=== PATIENT | female | born 1985 | race Caucasian/White ===

== ENCOUNTER → 2022-09-18 | Outpatient (CLI) | payer BC ==
--- NOTE | 2022-09-24 09:36 | MM ---
Reason for Exam: Screening (asymptomatic). Last mammogram was performed 2 year(s) and 7 month(s) ago. Patient History: Menarche at age 14. First Full-Term at age 28. Late child-bearing (after 30). Premenopausal. 2009, Bilateral Implants. Mother had breast cancer, age 62. Risk Values: Precious 5 year model risk: 0.9%. NCI Lifetime model risk: 17.8%. Prior Study Comparison: 02/17/2020 Bilateral Diagnostic Mammogram, [facility]. Tissue Density: The breast tissue is heterogeneously dense. This may lower the sensitivity of mammography. Findings: Analyzed By CAD. Bilateral breast implants. There is no suspicious group of microcalcifications or new suspicious mass in either breast. Overall Assessment: Negative, BI-RAD 1 Management: Screening Mammogram of both breasts in 1 year. A clinical breast exam by your physician is recommended on an annual basis and results should be correlated with mammographic findings. [facility] will attempt to contact patient to return for supplemental views and ultrasound if indicated. Electronically signed and approved by: Papo Tan DO
== END | disposition home or self-care (01) ==
LOC: RADMAMWWP 13:02
PROVIDERS: ATTEND Obstetrics & Gynecology
DX: Z12.31 Encounter for screening mammogram for malignant neoplasm of breast (principal); Z80.3 Family history of malignant neoplasm of breast
CPT/HCPCS: 77067

== ENCOUNTER → 2024-07-18 | Outpatient (CLI) | payer BC ==
--- NOTE | 2024-07-18 08:02 | MM ---
Reason for Exam: Screening (asymptomatic). Last mammogram was performed 1 year(s) and 10 month(s) ago. Patient History: Menarche at age 14. First Full-Term at age 28. Late child-bearing (after 30). Premenopausal. Patient has history of breast feeding. 2009, Bilateral Implants. Mother had breast cancer, age 62. Last menstrual period: 07/06/2024 Risk Values: Precious 5 year model risk: 1.1%. NCI Lifetime model risk: 17.6%. Prior Study Comparison: 02/17/2020 Bilateral Diagnostic Mammogram, [facility]. 09/18/2022 Bilateral MG screening mammo implant/CAD, [facility]. Tissue Density: The breasts are heterogeneously dense, which may obscure small masses. Findings: Analyzed By CAD. Bilateral retropectoral silicone implants are noted. Area of asymmetric density far posterior inferior left MLO view for which further evaluation is recommended. Additional medial anterior asymmetric density on the left cc implant displacement view. Both of these areas may represent superimposition shadow. This should be confirmed with further spot compression. Otherwise, no significant change. Overall Assessment: Incomplete: need additional imaging evaluation, BI-RAD 0 Management: Special View Mammogram of the left breast. 2 sites. [facility], , 07/18/2024 7:59 AM. Electronically signed and approved by: Kareem Garcia M.D. Radiologist
== END | disposition home or self-care (01) ==
LOC: RADMAMWWP 07:32
PROVIDERS: ATTEND Obstetrics & Gynecology
DX: Z12.31 Encounter for screening mammogram for malignant neoplasm of breast (principal); Z80.3 Family history of malignant neoplasm of breast; R92.333 Mammographic heterogeneous density, bilateral breasts; Z98.82 Breast implant status
CPT/HCPCS: 77067

== ENCOUNTER → 2024-07-25 | Outpatient (CLI) | payer BC ==
--- NOTE | 2024-07-25 15:29 | MM ---
Reason for Exam: Additional evaluation requested from abnormal screening. Last screening mammogram was performed less than 1 month ago. Patient History: Menarche at age 14. First Full-Term at age 28. Late child-bearing (after 30). Premenopausal. Patient has history of breast feeding. 2010, Bilateral Implants. Mother had breast cancer, age 62. Risk Values: Precious 5 year model risk: 1.1%. NCI Lifetime model risk: 17.6%. Prior Study Comparison: 02/17/2020 Bilateral Diagnostic Mammogram, [facility]. 09/18/2022 Bilateral MG screening mammo implant/CAD, [facility]. 07/18/2024 Bilateral MG screening mammo implant/CAD, [facility]. Tissue Density: Left: The breasts are heterogeneously dense, which may obscure small masses. Findings: Analyzed By CAD. Bilateral breast implants appear intact. Area of concern/asymmetry compresses out on spot compression imaging. No suspicious masses, calcifications or distortions. Overall Assessment: Benign, BI-RAD 2 Management: Screening Mammogram of both breasts in 1 year. Results were given to the patient verbally at the time of exam. Patient should continue monthly self-breast exams. A clinical breast exam by your physician is recommended on an annual basis. This exam should not preclude additional follow-up of suspicious palpable abnormalities. Note on Precious scores and lifetime risk: 1. A Precious score greater than 3% is considered moderate risk. If this is the case, consider specialist referral to assess eligibility for a risk reducing agent. 2. If overall lifetime risk for the development of breast cancer is 20% or higher, the patient may qualify for future screening with alternating mammogram and breast MRI. [facility], , 07/25/2024 3:26 PM. Electronically signed and approved by: Papo Tan DO
== END | disposition home or self-care (01) ==
LOC: RADMAMWWP 14:54
PROVIDERS: ATTEND Obstetrics & Gynecology
DX: R92.8 Other abnormal and inconclusive findings on diagnostic imaging of breast (principal); Z80.3 Family history of malignant neoplasm of breast; Z98.82 Breast implant status; R92.332 Mammographic heterogeneous density, left breast; R92.2 Inconclusive mammogram
CPT/HCPCS: 77061; 77065